=== PATIENT | male | born 1980 | race Two or more races ===

== ENCOUNTER 2024-06-03 20:59 | Emergency (ER) | payer OTHER ==
[~2024-06-03] VITALS: Ht 170.2 cm; Wt 83.5 kg
[2024-06-03] MEDS ORDERED: IBUprofen 800 MG TABLET PO STA (21:52)
[2024-06-03] MEDS ORDERED: IBUprofen 20 MG/ML BLIST.PACK (5ML) PO ONE (21:58)
== END 2024-06-03 22:06 | disposition home or self-care (01) ==
LOC: ER 21:02
DX: M62.830 Muscle spasm of back (principal)